=== PATIENT | male | born 1980 | race Caucasian/White ===

== ENCOUNTER 2018-05-24 07:19 | Emergency (ER) | payer OTHER | END 2018-05-24 07:30 | disposition left against medical advice (07) | LOC: UCEAST 07:19 | DX: T63.441A Toxic effect of venom of bees, accidental (unintentional), initial encounter (principal); Y92.9 Unspecified place or not applicable; Z53.21 Procedure and treatment not carried out due to patient leaving prior to being seen by health care provider ==